=== PATIENT | male | born 1960 | race Caucasian/White ===

== ENCOUNTER 2017-03-21 23:02 | Inpatient (IN) | payer OTHER ==
[~2017-03-21] VITALS: Ht 170.2 cm; Wt 91.9 kg
[~2017-03-21 23:02] MED LIST: BENZ1TAB7 PO; CYAN500T46 PO; HAL2 PO; LISI30TA47 PO; METF1000 PO; MULT1TAB63 PO; SERT-165 PO
[2017-03-21] MEDS ORDERED: CEFTRIAXONE 1 GM/50 ML (PMX) 50 ML IVPB STA (23:56)
[2017-03-21] MEDS ORDERED: OCTREOTIDE 50 MCG in SOD CHLORIDE 0.9% 25 ML IVPB STA (23:56)
[2017-03-21] MEDS ORDERED: morphine 4 MG/ML VIAL IV STA (23:56)
[2017-03-21] MEDS ORDERED: PANTOPRAZOLE IV 80 MG in SOD CHLORIDE 0.9% 100 ML IVPB STA (23:56)
[2017-03-21] MEDS ORDERED: SOD CHLORIDE 0.9% 1,000 ML IV STA (23:56)
[2017-03-22] VITALS (7 sets, daily range): BP systolic 197–212; BP diastolic 108–131; PULSE 92–108; RESP 18–20; TEMP 98.6; Ht 170.2 cm; Wt 91.9 kg
[2017-03-22 00:27] LABS: AADO2 Arterial 42.8 mmHg (7.0-24.0); Arterial Base Excess -10.6 mmol/L (-3.0-3); Arterial COHb 0.9 % (0.0-3.0); Arterial Fraction of Oxyhgb 93.8 % (93.0-99.0); Arterial HCO3 11.8 mmol/L (22.0-26.0); Arterial MetHb 0.5 % (0.0-1.5); MODE ROOM AIR
[2017-03-22 00:29] LABS: ADD SCAN DIFF NO
[2017-03-22 00:32] LABS: BASOPHIL # 0.1 10^3/ul (0.0-0.1); BASOPHILS % 0.8 % (0.0-2.0); EOSINOPHILS % 0.6 % (0.0-7.0); HEMATOCRIT 43.7 % (42.0-52.0); HEMOGLOBIN 15.7 g/dl (14.0-18.0); LYMPHOCYTES # 2.3 10^3/ul (0.8-2.9); LYMPHOCYTES % 36.1 % (15.0-51.0); MEAN CORPUSCULAR HEMOGLOBIN 32.4 pg (29.0-33.0); MEAN CORPUSCULAR HGB CONC 35.9 g/dl (32.0-37.0); MEAN CORPUSCULAR VOLUME 90.3 fl (82.0-101.0); MEAN PLATELET VOLUME 11.8 fl (7.4-10.4); MONOCYTE # 0.5 10^3/ul (0.3-0.9); MONOCYTES % 7.2 % (0.0-11.0); NEUTROPHIL # 3.4 10^3/ul (1.6-7.5); NEUTROPHILS % 55.1 % (39.0-77.0); PLATELET COUNT 204 10^3/UL (140-415); RED BLOOD COUNT 4.84 10^6/ul (4.70-6.10); RED CELL DISTRIBUTION WIDTH 13.3 % (11.5-14.5); WHITE BLOOD COUNT 6.2 10^3/ul (4.8-10.8)
[2017-03-22] MEDS ORDERED: ONDANSETRON 4 MG INJ ONE (00:43)
[2017-03-22] MEDS ORDERED: LORAZEPAM 2 MG INJ ONE (00:43)
[2017-03-22 00:47] LABS: INR 1.03; PROTIME 13.5 Sec (12.2-14.2); PT RATIO 1.1
[2017-03-22 00:48] LABS: PARTIAL THROMBOPLASTIN TIME 24.1 Sec (25.0-35.0)
[2017-03-22 00:54] LABS: ALBUMIN 4.2 g/dl (3.3-4.9); ALBUMIN/GLOBULIN RATIO 1.2; BILIRUBIN,INDIRECT 0.7 mg/dl (0-1.1); BILIRUBIN,TOTAL 0.7 mg/dl (0.2-1.3); CALCIUM 8.3 mg/dl (8.4-10.2); CREATININE 0.63 mg/dl (0.61-1.24); POTASSIUM 3.3 mmol/L (3.5-5.1); TOTAL PROTEIN 7.7 g/dl (6.1-8.1)
[2017-03-22] MEDS ORDERED: HAL5 PO (00:54)
[2017-03-22] MEDS ORDERED: SERT50TA6 PO (00:54)
[2017-03-22] MEDS ORDERED: METF-480 PO (00:54)
--- NOTE | 2017-03-22 00:59 | RADRPT ---
PROCEDURE: XR Chest. CLINICAL INDICATION: Chest pain. Possible upper gastrointestinal bleeding. TECHNIQUE: Portable AP view of the chest was obtained. COMPARISON: None. FINDINGS: The cardiomediastinal silhouette is within normal limits. The lungs are clear. There is no evidenc e for pleural effusion, pneumothorax or pulmonary vascular congestion. The osseous structures are i ntact with no evidence for acute abnormality. No free air seen below the diaphragm. RPTAT:HJJR IMPRESSION: No evidence for acute intrathoracic pathology. Physician Louis Date Time Electronically viewed and signed by Carlos Burch Physician on 03/22/2017 00:59 /
[2017-03-22] MEDS ORDERED: PROP10TA6 PO (01:00)
[2017-03-22] MEDS ORDERED: ASPI-664 PO (01:00)
[2017-03-22] MEDS ORDERED: BUPR150T18 PO (01:00)
[2017-03-22] MEDS ORDERED: LOSA50TA2 PO (01:00)
[2017-03-22] MEDS ORDERED: HYD25 PO (01:00)
[2017-03-22] MEDS ORDERED: GLIP-95 PO (01:00)
[2017-03-22] MEDS ORDERED: CHOL100062 PO (01:01)
[2017-03-22] MEDS ORDERED: NAPR-685 PO (01:01)
[2017-03-22 01:05] LABS: TROPONIN-I 0.013 ng/ml (0.00-0.12)
[2017-03-22] MEDS ORDERED: LORAZEPAM 2 MG INJ IV ONE ×2 (01:10→03:05)
[2017-03-22] MEDS ORDERED: ONDANSETRON 4 MG INJ IV ONE (01:10)
--- NOTE | 2017-03-22 01:32 | RADRPT ---
PROCEDURE: CT ABDOMEN/PELVIS WITHOUT CONTRAST CLINICAL INDICATION: 57-year-old male with abdominal pain. TECHNIQUE: The study was performed utilizing a GE [employer] VCT 64-slice CT scanner. Direct axia l sections were obtained through the abdomen and pelvis without the use of intravenous contrast mate rial. Sagittal and coronal reformations were obtained. One or more of the following dose reduction t echniques were utilized: automated exposure control, adjustment of the mA and/or kV according to pat ient's size or use of iterative reconstruction technique. The images were reviewed on a PACS workst atBiolase. CTD/vol = 18.1 mGy; Total Exam DLP = 1162.6 mGy-cm. COMPARISON: None. FINDINGS: There is trace bibasilar subsegmental atelectasis. There is no evidence for significant pleural eff usion. The liver has a normal size and contour. There is diffuse decreased density throughout the liver consistent with fatty infiltration without focal areas of abnormal density. No intrahepatic no r extrahepatic biliary ductal dilatation is seen. Surgical clips are present within the gallbladder fossa from prior cholecystectomy The pancreas is without areas of abnormal attenuation. The spleen is identified and has a normal size without abnormal density. The adrenal glands are unremarkable. T here is a nonobstructing right lower pole renal leoncio calculus measuring 5 x 3 mm. The left kidney is without abnormal density, calculi or obstruction. The urinary bladder contains urine. There are m ildly dilated fluid-filled loops of small bowel without definite transition point suggestive of an e nteritis. The appendix is visualized and is without abnormal thickening or surrounding inflammatory reaction. The prostate is mildly prominent with small central calcifications. There is no significant pelvic free fluid. The aortoiliac vessels are without aneurysmal dilatation. Degenera tive changes are seen within the lower lumbar spine. IMPRESSION: 1. Diffuse fatty infiltration of the liver. 2. Status post cholecystectomy. 3. Nonobstructing right lower pole renal calculus. 4. Dilated fluid-filled loops of small bowel suggestive of an enteritis. 5. No CT evidence for appendicitis. 6. Degenerative changes lower lumbar spine. .Armen Molina MD, MD Date Time Electronically viewed and signed by .Armen Molina MD, on 03/22/2017 01:32 .[place]/
[2017-03-22] MEDS ORDERED: LACTATED RINGER'S 1,000 ML IV ONE (02:30)
[2017-03-22 03:11] LABS: ADD UMIC YES; URINE BILIRUBIN (Dip) NEGATIVE (NEGATIVE); URINE BLOOD (Dip) TRACE (NEGATIVE); URINE COLOR LT. YELLOW (YELLOW); URINE GLUCOSE (Dip) >=1000 % (NEGATIVE); URINE KETONES (Dip) TRACE (NEGATIVE); URINE LEUKOCYTE ESTERASE (Dip) NEGATIVE (NEGATIVE); URINE NITRITE (Dip) NEGATIVE (NEGATIVE); URINE TOTAL PROTEIN (Dip) 1+ (NEGATIVE); URINE UROBILINOGEN (Dip) 0.2 E.U./dL (0.1-1.0)
[2017-03-22 03:25] LABS: SQUAMOUS EPITHELIAL CELL,UR OCCASIONAL; URINE RBCS 0-2 /HPF (0)
[2017-03-22 03:26] LABS: BACTERIA,URINE OCCASIONAL
[2017-03-22] MEDS ORDERED: ACETAMINOPHEN 325 MG TAB PO PRN (03:30)
[2017-03-22] MEDS ORDERED: ONDANSETRON 4 MG INJ IV PRN ×2 (03:30→05:00)
[2017-03-22 04:24] LABS: BARBITURATES NEGATIVE (NEGATIVE); BENZODIAZEPINES NEGATIVE (NEGATIVE); CANNABINOIDS NEGATIVE (NEGATIVE); COCAINE NEGATIVE (NEGATIVE); OPIATES POSITIVE (NEGATIVE)
[2017-03-22] MEDS ORDERED: LORAZEPAM 2 MG INJ IV PRN ×2 (05:00)
[2017-03-22] MEDS ORDERED: METOPROLOL 25 MG TAB PO SCH ×2 (05:15→09:00)
[2017-03-22] MEDS ORDERED: PANTOPRAZOLE 40 MG INJ IV SCH (06:00)
--- NOTE | 2017-03-22 06:24 | ERA ---
ER Documentation Chief Complaint Date/Time DATE: 03/22/17 TIME: 06:17 Chief Complaint abdominal pain, states been drinking etoh HPI 57-year-old male with a history of alcoholism presenting to the ER with upper abdominal pain. He states the pain started 3 days ago. The pain is constant, radiating all over his abdomen and back, throbbing, 10 out of 10, with associated nausea and vomiting. He states he has noticed some dark emesis with dark stools. He denies any hematochezia or hematemesis. He denies any fevers or chills. No chest pain or shortness of breath. He has been drinking today and his last drink was this morning. He also endorses a history of schizophrenia and diabetes, however he is off medications. He recently went to [facility] and returned today. ROS All systems reviewed and are negative except as per history of present illness. Medications Home Meds Reported Medications Cholecalciferol* (Vitamin D3*) 1,000 Unit Tablet, 1000 UNIT PO BID, TAB 03/22/17 Naproxen* (Naproxen*) 375 Mg Tablet, 375 MG PO BID, TAB 03/22/17 Hydrochlorothiazide* (Hydrochlorothiazide*) 25 Mg Tab, 25 MG PO DAILY, #30 TAB 03/22/17 Aspirin* (Aspirin* EC) 81 Mg Tablet.dr, 81 MG PO DAILY, TAB 03/22/17 Glipizide* (Glipizide*) 10 Mg Tablet, 10 MG PO BID, TAB 03/22/17 Losartan Potassium* (Cozaar*) 50 Mg Tablet, 50 MG PO DAILY, #30 TAB 03/22/17 Propranolol Hcl* (Propranolol Hcl*) 10 Mg Tablet, 10 MG PO BID, TAB 03/22/17 Bupropion Hcl* (Bupropion Hcl SR*) 150 Mg Tablet.er, 150 MG PO BID, TAB.SA 03/22/17 Sertraline Hcl* (Sertraline Hcl*) 50 Mg Tablet, 50 MG PO DAILY, #30 TAB 03/22/17 Metformin* (Glucophage*) 850 Mg Tablet, 850 MG PO WITH MEALS, #90 TAB 03/22/17 Haloperidol* (Haldol*) 5 Mg Tab, 5 MG PO BID for SLEEP, TAB 03/22/17 Discontinued Reported Medications Multivitamins,Therapeutic (Therems) 1 Tab Tablet, 1 TAB PO 06/23/15 Cyanocobalamin* (Vitamin B12*) 500 Mcg Tab, 500 MCG PO DAILY, TAB 06/23/15 Sertraline Hcl* (Sertraline Hcl*) 100 Mg Tablet, 100 MG PO DAILY, TAB 06/23/15 Haloperidol* (Haldol*) 2 Mg Tab, 2 MG PO BID, TAB 06/23/15 Benztropine Mesylate* (Benztropine Mesylate*) 1 Mg Tablet, 1 MG PO TID, TAB 06/23/15 Lisinopril* (Lisinopril*) 30 Mg Tablet, 30 MG PO DAILY, TAB 06/23/15 Metformin Hcl* (Metformin Hcl*) 1,000 Mg Tablet, 1000 MG PO WITH BREAKFAST, TAB 06/23/15 Allergies Allergies: Coded Allergies: No Known Drug Allergies (Unverified Allergy, Unknown, 03/22/17) PMhx/Soc History of Surgery: Yes (appendectomy) Anesthesia Reaction: No Hx Neurological Disorder: No Hx Respiratory Disorders: No Hx Cardiac Disorders: Yes (HTN) Hx Psychiatric Problems: Yes (schizophrenia) Hx Miscellaneous Medical Probl: No Hx Alcohol Use: Yes Hx Substance Use: Yes Hx Tobacco Use: Yes Smoking Status: Current some day smoker FmHx Family History: No diabetes Physical Exam Vitals Vital Signs Date Time Temp Pulse Resp B/P Pulse Ox O2 Delivery O2 Flow Rate FiO2 03/22/17 02:13 98.6 119 17 178/113 95 Nasal Cannula 3.0 03/22/17 02:05 Nasal Cannula 3 03/21/17 23:06 98.7 117 20 138/98 96 Physical Exam Const: Appears intoxicated, in distress, agitated Head: Atraumatic Eyes: Normal Conjunctiva, no scleral icterus ENT: Dry mucous membranes. Neck: Full range of motion..~ No meningismus. Resp: Wheezing in the bilateral lower lobes, no rales or rhonchi Cardio: Tachycardic with regular rhythm, no murmurs Abd: Soft, diffusely tender to palpation without rebound or guarding, no masses, no hepatomegaly normal bowel sounds Skin: No petechiae or rashes Back: No midline or flank tenderness Ext: No cyanosis, or edema Neur: Awake and alert Psych: Agitated, tremulous Result Diagram: 03/22/17 0020 03/22/17 0020 Results 24 hrs Laboratory Tests Test 03/21/17 23:53 03/22/17 00:20 03/22/17 02:50 Blood Gas Specimen Source Blood arterial Arterial Blood Date Drawn 03/22/2017 12:15:31 AM Arterial Blood pH (Temp corrected) 7.420 Arterial Blood pCO2 (Temp correct) 18.6mmhg Arterial Blood pO2 (Temp corrected) 84.7mmHG Arterial Blood HCO3 11.8mmol/L Arterial Blood Base Excess -10.6mmol/L Arterial Blood Oxygen Saturation 95.1mmHG Juan Test N/A Arterial Blood Gas Puncture Site A-Line Arterial Blood Carboxyhemoglobin 0.9% Arterial Blood Methemoglobin 0.5% Blood Gas A-a O2 Differential 42.8mmHg Oxyhemoglobin Percent 93.8% Total Hemoglobin 11.0g/dl Blood Gas Temperature 37.0C Blood Gas Modality ROOM AIR FiO2 21.0% Blood Gas Notified Whom K B Blood Gas Notified Time 03/22/2017 12:27:02 AM White Blood Count 6.210^3/ul Red Blood Count 4.8410^6/ul Hemoglobin 15.7g/dl Hematocrit 43.7% Mean Corpuscular Volume 90.3fl Mean Corpuscular Hemoglobin 32.4pg Mean Corpuscular Hemoglobin Concent 35.9g/dl Red Cell Distribution Width 13.3% Platelet Count 26762^3/UL Mean Platelet Volume 11.8fl Neutrophils % 55.1% Lymphocytes % 36.1% Monocytes % 7.2% Eosinophils % 0.6% Basophils % 0.8% Nucleated Red Blood Cells % 0.0/100WBC Neutrophils # 3.410^3/ul Lymphocytes # 2.310^3/ul Monocytes # 0.510^3/ul Eosinophils # 0.010^3/ul Basophils # 0.110^3/ul Nucleated Red Blood Cells # 0.010^3/ul Prothrombin Time 13.5Sec Prothrombin Time Ratio 1.1 INR International Normalized Ratio 1.03 Activated Partial Thromboplast Time 24.1Sec Sodium Level 136mmol/L Potassium Level 3.3mmol/L Chloride Level 100mmol/L Carbon Dioxide Level 21mmol/L Anion Gap 18 Blood Urea Nitrogen 8mg/dl Creatinine 0.63mg/dl Glucose Level 321mg/dl Calcium Level 8.3mg/dl Total Bilirubin 0.7mg/dl Direct Bilirubin 0.00mg/dl Indirect Bilirubin 0.7mg/dl Aspartate Amino Transf (AST/SGOT) 225IU/L Alanine Aminotransferase (ALT/SGPT) 97IU/L Alkaline Phosphatase 182IU/L Troponin I 0.013ng/ml Total Protein 7.7g/dl Albumin 4.2g/dl Globulin 3.50g/dl Albumin/Globulin Ratio 1.20 Lipase 305U/L Ethyl Alcohol Level 219.0mg/dl Urine Color LT. YELLOW Urine Clarity CLEAR Urine pH 5.5 Urine Specific [place] >=1.030 Urine Ketones TRACE Urine Nitrite NEGATIVE Urine Bilirubin NEGATIVE Urine Urobilinogen 0.2 E.U./dL Urine Leukocyte Esterase NEGATIVE Urine Microscopic RBC 0-2/HPF Urine Microscopic WBC 0-2/HPF Urine Squamous Epithelial Cells OCCASIONAL Urine Bacteria OCCASIONAL Urine Hemoglobin TRACE Urine Glucose >=1000% Urine Total Protein 1+ Urine Opiates Screen POSITIVE Urine Barbiturates NEGATIVE Urine Amphetamines Screen NEGATIVE Urine Benzodiazepines Screen NEGATIVE Urine Cocaine Screen NEGATIVE Urine Cannabinoids NEGATIVE Current Medications Medications (Trade) Dose Ordered Sig/Agnes Route PRN Reason Start Time Stop Time Status Last Admin Dose Admin Sodium Chloride 1,000 ml @ 1,000 mls/hr Q1H STAT IV 03/21/17 23:56 03/22/17 00:55 DC 03/22/17 01:10 Pantoprazole 80 mg/Sodium Chloride 100 ml @ 400 mls/hr ONCE STAT IVPB 03/21/17 23:56 03/22/17 00:10 DC 03/22/17 01:10 Octreotide Acetate 50 mcg/ Sodium Chloride 26 ml @ 100 mls/hr Q16M STAT IVPB 03/21/17 23:56 03/22/17 00:11 DC 03/22/17 01:09 Ceftriaxone Sodium (Rocephin) 50 ml @ 100 mls/hr ONCE STAT IVPB 03/21/17 23:56 03/22/17 00:25 DC 03/22/17 01:10 Morphine Sulfate (morphine) 4 mg ONCE STAT IV 03/21/17 23:56 03/21/17 23:59 DC 03/22/17 00:49 Ondansetron HCl (Zofran Inj) 4 mg STK-MED ONCE .ROUTE 03/22/17 00:43 03/22/17 00:44 DC Lorazepam (Ativan) 2 mg STK-MED ONCE .ROUTE 03/22/17 00:43 03/22/17 00:44 DC Lorazepam (Ativan) 1 mg ONCE ONCE IV 03/22/17 01:10 03/22/17 01:11 DC 03/22/17 00:45 Ondansetron HCl 4 mg 4 mg ONCE ONCE IV 03/22/17 01:10 03/22/17 01:11 DC 03/22/17 00:47 Lactated Ringer's (Lr) 1,000 ml @ 1,000 mls/hr Q1H ONCE IV 03/22/17 02:30 03/22/17 03:29 DC 03/22/17 02:08 Lorazepam (Ativan) 1 mg ONCE ONCE IV 03/22/17 03:05 03/22/17 03:06 DC 03/22/17 03:08 Procedures/MDM EMERGENT LABS AND DIAGNOSTIC STUDIES: Lab Results above were reviewed and interpreted by me. CBC was unremarkable CMP shows mild hypokalemia, hyperglycemia, elevated AST and ALT, elevated lipase 12-lead EKG was interpreted by Junie Craig MD: Sinus tachycardia at 111 beats per minute Normal axis Normal intervals No acute ST or T wave changes suggestive of acute ischemia or STEMI. Radiology Results as interpreted by Radiology below were reviewed by Nicole Craig MD: Chest x-ray: No acute abnormalities CT abdomen and pelvis: IMPRESSION: 1. Diffuse fatty infiltration of the liver. 2. Status post cholecystectomy. 3. Nonobstructing right lower pole renal calculus. 4. Dilated fluid-filled loops of small bowel suggestive of an enteritis. 5. No CT evidence for appendicitis. 6. Degenerative changes lower lumbar spine. .Armen Molina MD, Date Time Electronically viewed and signed by .Armen Molina MD, on 03/22/2017 01:32 Initial Nursing notes reviewed. Previous Medical Records requested via the Electronic Health Record. EMERGENCY DEPARTMENT COURSE / MEDICAL DECISION MAKING: Patient is presenting with signs of alcohol withdrawal without delirium in addition to abdominal pain with coffee-ground emesis and melena. His vitals are notable for hypertension, tachycardia. He is afebrile. I have a low suspicion for SBP. CT of the abdomen and pelvis was done and showed dilated loops of bowel without evidence of clear obstruction or bowel perforation. Labs are consistent with alcoholic hepatitis and pancreatitis. He also has uncontrolled diabetes without evidence of DKA. Ativan was given for his agitation. Morphine was given for pain. His symptoms improved after these medications. 2 L of IV fluids were given for hydration. Patient will be admitted for treatment of his pancreatitis, IV hydration, pain control, and control of his alcohol withdrawal symptoms. Critical Care Time: 35 minutes Treatments/Evaluations: Close monitoring and treatment of unstable vital signs, cardiorespiratory, and neurologic status, while maintaining tight balance of fluid, respiratory, and cardiac interventions. This time includes discussing the case with the patient and the patients family. This time does not include all procedures stated elsewhere in this record. This time also includes reviewing old records, labs and radiological studies. This time includes examining and re-examining the patient. Additionally, this time also includes arranging care with admitting and consulting physicians. Accepting Care Team: Current data and ongoing care discussed. Time: Time of admission Primary Provider: Amish Patino Diagnosis: Primary Impression: Alcoholic hepatitis Qualified Code: K70.10 - Alcoholic hepatitis without ascites Additional Impressions: Pancreatitis Qualified Code: K85.20 - Alcohol-induced acute pancreatitis, unspecified complication status Alcohol withdrawal Qualified Code: F10.230 - Alcohol withdrawal, uncomplicated Uncontrolled diabetes mellitus Condition: Serious KEYLA CRAIG MD March 22, 2017 06:24
--- NOTE | 2017-03-22 08:17 | HP ---
DATE OF ADMISSION: 03/22/2017 TIME SEEN: 5 a.m. CHIEF COMPLAINT: 1. Abdominal pain. 2. Vomiting. HISTORY OF PRESENT ILLNESS: The patient is a 57-year-old male with a history of hypertension, schiz ophrenia, and alcohol abuse who was brought to the ER by family for abdominal pain, vomiting, and al cohol intoxication. The patient just came back from [place] last night and has been drinking daily h eavily. He describes his abdominal pain as sharp and it is diffuse. His vomiting described as dark colored emesis and also reported dark stools. He said he has had similar dark stool in the past. The patient has not been compliant with his psychiatric medications. When patient presented to the ER, blood pressure was 138/98, heart rate 117, respiratory rate 20, te mperature 98.7, oxygen saturation 96% on room air. Laboratory values show a potassium of 3.3, gluco se 321, AST 225, ALT 97, alkaline phosphatase 182, lipase 305. Otherwise, CBC and CMP are within no rmal limits. Chest x-ray shows no evidence for acute intrathoracic disease. CT abdomen and pelvis without contrast shows diffuse fatty liver, nonobstructing right lower pole renal calculus, dilated fluid-filled loops of small bowel suggestive of enteritis. REVIEW OF SYSTEMS: A 12-point review of systems was performed, negative except as mentioned in HPI. PAST MEDICAL HISTORY: As per HPI. PAST SURGICAL HISTORY: Appendectomy. SOCIAL HISTORY: He drinks alcohol heavily. ALLERGIES: NO KNOWN DRUG ALLERGIES. HOME MEDICATIONS: 1. Cozaar. 2. Propranolol. 3. Aspirin. 4. Bupropion. 5. Haldol. 6. Naproxen. 7. hydrochlorothiazide. 8. Glipizide. 9. Metformin. 10. Vitamin D2. PHYSICAL EXAMINATION: VITAL SIGNS: Blood pressure 197/111, heart rate 114, respiratory rate 20, temperature 97.9, oxygen saturation 95%. GENERAL: The patient is somehow agitated. HEENT: No obvious head deformity. Pupils are reactive to light. CARDIOVASCULAR: Tachycardic with regular rhythm. LUNGS: Clear. ABDOMEN: Soft. There is tenderness diffusely. No guarding. No rigidity. There are positive celestino l sounds. EXTREMITIES: No edema. NEUROLOGIC: No focal deficits. LABORATORY DATA: Pertinent positives as mentioned in HPI. IMAGING: Chest x-ray and CT abdomen and pelvis without contrast results as mentioned in the HPI. IMPRESSION: 1. Alcohol intoxication, monitor for withdrawal. 2. Probable upper gastrointestinal bleed. 3. Abdominal pain, likely secondary to gastritis and possibly pancreatitis. 4. Pancreatitis. 5. Abnormal liver enzymes, most likely secondary to alcoholic liver disease. 6. Hypokalemia. 7. Diabetes with hyperglycemia. 8. Hypertensive urgency. 9. History of schizophrenia. PLAN: He will be placed on Protonix, banana bag, Librium, and as needed Ativan for withdrawal. We will monitor his H and H closely. We will place a GI consultation. He will be on insulin for diabe gonzalez and will adjust as needed. Will also add antihypertensive for better blood pressure control. W ill correct electrolytes as needed. Further workup and management per clinical course. Dictated By: GURPREET ADAMS/RICH Conf#: [id number] DID#: [id number]
[2017-03-22] MEDS: CHLORDIAZEPOXIDE 25 MG CAP PO SCH ×2 (08:59→12:59)
[2017-03-22] MEDS ORDERED: MULTIVITAMINS 10 ML, THIAMINE 100 MG, FOLIC ACID 1 MG in SOD CHLORIDE 0.9% 1,000 ML IVPB SCH (09:00)
[2017-03-22] MEDS ORDERED: hydrALAzine 20 MG INJ IV PRN (09:00)
[2017-03-22] MEDS ORDERED: morphine 4 MG/ML VIAL IM PRN (09:00)
[2017-03-22] MEDS ORDERED: morphine 4 MG/ML VIAL IV PRN (09:00)
[2017-03-22 11:05] LABS: ADD SCAN DIFF NO
[2017-03-22 11:17] LABS: BASOPHILS % 0.4 % (0.0-2.0); EOSINOPHILS % 0.4 % (0.0-7.0); HEMATOCRIT 43.7 % (42.0-52.0); HEMOGLOBIN 15.2 g/dl (14.0-18.0); LYMPHOCYTES % 10.6 % (15.0-51.0); MEAN CORPUSCULAR HEMOGLOBIN 31.9 pg (29.0-33.0); MEAN CORPUSCULAR HGB CONC 34.8 g/dl (32.0-37.0); MEAN CORPUSCULAR VOLUME 91.6 fl (82.0-101.0); MEAN PLATELET VOLUME 11.6 fl (7.4-10.4); MONOCYTE # 0.4 10^3/ul (0.3-0.9); MONOCYTES % 4.7 % (0.0-11.0); NEUTROPHIL # 7.5 10^3/ul (1.6-7.5); NEUTROPHILS % 83.7 % (39.0-77.0); PLATELET COUNT 180 10^3/UL (140-415); RED BLOOD COUNT 4.77 10^6/ul (4.70-6.10); RED CELL DISTRIBUTION WIDTH 13.4 % (11.5-14.5)
[2017-03-22] MEDS ORDERED: LABETALOL HCL 20MG INJ IV PRN (11:30)
[2017-03-22 11:53] LABS: ALBUMIN 3.7 g/dl (3.3-4.9); POTASSIUM 3.6 mmol/L (3.5-5.1)
[2017-03-22 11:55] LABS: BILIRUBIN,INDIRECT 1.3 mg/dl (0-1.1); BILIRUBIN,TOTAL 1.3 mg/dl (0.2-1.3); CREATININE 0.58 mg/dl (0.61-1.24)
[2017-03-22 11:56] LABS: ALBUMIN/GLOBULIN RATIO 1.12; CALCIUM 7.8 mg/dl (8.4-10.2); MAGNESIUM 1.5 mg/dl (1.7-2.5); PHOSPHORUS 2.5 mg/dl (2.5-4.9)
--- NOTE | 2017-03-22 14:45 | PN ---
Date/Time of Note Date/Time of Note DATE: 03/22/17 TIME: 14:41 Assessment/Plan VTE Prophylaxis VTE Prophylaxis Intervention: contraindicated Lines/Catheters Urinary Cath still in place: No Assessment/Plan Chief Complaint/Hosp Course 57-yr M w admitted w abd pain alcoholism & potential GI bleed. O: Bp elevated. PE No pallor adenopathy Reg possibly tachycardic Clear Bs+ nt nd, no R/R/G No edema A/P 1. GI bleed, stable npo/ PPI, consider EGD. 2. Alcoholism, counseling/ thiamine; add scheduled IV Ativan 3. Nonadherence 4. Depression 5. Diabetes type 2 6. Htn/htn urgency 7. Colitis/ Enteritis/abn lipase 8. Schizophrenia 10.Rt nephrolithiasis Problems: Exam/Review of Systems Vital Signs Vitals Vital Signs Date Time Temp Pulse Resp B/P Pulse Ox O2 Delivery O2 Flow Rate FiO2 03/22/17 12:15 92 03/22/17 11:39 98.6 18 197/108 97 03/22/17 05:16 Nasal Cannula 2.0 Intake and Output 03/21/17 03/21/17 03/22/17 15:00 23:00 07:00 Intake Total 2176 ml Balance 2176 ml Results Result Diagram: 03/22/17 1028 03/22/17 1028 Results 24 hrs Laboratory Tests Test 03/21/17 23:53 03/22/17 00:20 03/22/17 02:50 03/22/17 10:28 Blood Gas Specimen Source Blood arterial Arterial Blood Date Drawn 03/22/2017 12:15:31 AM Arterial Blood pH (Temp corrected) 7.420 Arterial Blood pCO2 (Temp correct) 18.6 L Arterial Blood pO2 (Temp corrected) 84.7 Arterial Blood HCO3 11.8 L Arterial Blood Base Excess -10.6 L Arterial Blood Oxygen Saturation 95.1 Juan Test N/A Arterial Blood Gas Puncture Site A-Line Arterial Blood Carboxyhemoglobin 0.9 Arterial Blood Methemoglobin 0.5 Blood Gas A-a O2 Differential 42.8 H Oxyhemoglobin Percent 93.8 Total Hemoglobin 11.0 L Blood Gas Temperature 37.0 Blood Gas Modality ROOM AIR FiO2 21.0 Blood Gas Notified Whom K B Blood Gas Notified Time 03/22/2017 12:27:02 AM White Blood Count 6.2 9.0 # Red Blood Count 4.84 4.77 Hemoglobin 15.7 15.2 Hematocrit 43.7 43.7 Mean Corpuscular Volume 90.3 91.6 Mean Corpuscular Hemoglobin 32.4 31.9 Mean Corpuscular Hemoglobin Concent 35.9 34.8 Red Cell Distribution Width 13.3 13.4 Platelet Count 204 180 Mean Platelet Volume 11.8 H 11.6 H Neutrophils % 55.1 83.7 H Lymphocytes % 36.1 10.6 L Monocytes % 7.2 4.7 Eosinophils % 0.6 0.4 Basophils % 0.8 0.4 Nucleated Red Blood Cells % 0.0 0.0 Neutrophils # 3.4 7.5 Lymphocytes # 2.3 1.0 Monocytes # 0.5 0.4 Eosinophils # 0.0 0.0 Basophils # 0.1 0.0 Nucleated Red Blood Cells # 0.0 0.0 Prothrombin Time 13.5 Prothrombin Time Ratio 1.1 INR International Normalized Ratio 1.03 Activated Partial Thromboplast Time 24.1 L Sodium Level 136 137 Potassium Level 3.3 L 3.6 Chloride Level 100 101 Carbon Dioxide Level 21 25 Anion Gap 18 H 15 Blood Urea Nitrogen 8 9 Creatinine 0.63 0.58 L Glucose Level 321 H 254 H Calcium Level 8.3 L 7.8 L Total Bilirubin 0.7 1.3 Direct Bilirubin 0.00 0.00 Indirect Bilirubin 0.7 1.3 H Aspartate Amino Transf (AST/SGOT) 225 H 165 H Alanine Aminotransferase (ALT/SGPT) 97 H 115 H Alkaline Phosphatase 182 H 191 H Troponin I 0.013 Total Protein 7.7 7.0 Albumin 4.2 3.7 Globulin 3.50 H 3.30 H Albumin/Globulin Ratio 1.20 1.12 Lipase 305 H Ethyl Alcohol Level 219.0 Urine Color LT. YELLOW Urine Clarity CLEAR Urine pH 5.5 Urine Specific [place] >=1.030 H Urine Ketones TRACE Urine Nitrite NEGATIVE Urine Bilirubin NEGATIVE Urine Urobilinogen 0.2 E.U./dL Urine Leukocyte Esterase NEGATIVE Urine Microscopic RBC 0-2 Urine Microscopic WBC 0-2 Urine Squamous Epithelial Cells OCCASIONAL Urine Bacteria OCCASIONAL Urine Hemoglobin TRACE Urine Glucose >=1000 Urine Total Protein 1+ H Urine Opiates Screen POSITIVE Urine Barbiturates NEGATIVE Urine Amphetamines Screen NEGATIVE Urine Benzodiazepines Screen NEGATIVE Urine Cocaine Screen NEGATIVE Urine Cannabinoids NEGATIVE Phosphorus Level 2.5 Magnesium Level 1.5 L Test 5/11/17 11:00 03/22/17 11:32 Stool Occult Blood POSITIVE Bedside Glucose 241 H Medications Medications Current Medications Pantoprazole (Protonix Iv) 40 mg DAILY@06 IV Last administered on 03/22/17 05: 14; Admin Dose 40 MG; Start 03/22/17 at 06:00 Lorazepam (Ativan) 2 mg Q1H PRN IV withdraws; Start 03/22/17 at 05:00 Lorazepam (Ativan) 1 mg Q1H PRN IV Anxiety Last administered on 03/22/17 07:37 ; Admin Dose 1 MG; Start 03/22/17 at 05:00 Chlordiazepoxide 50 mg 50 mg TID PO Last administered on 03/22/17 12:59; Admin Dose 50 MG; Start 03/22/17 at 09:00 Multivitamins/ Thiamine HCl/ Folic Acid/Sodium Chloride (Mvi Adult/ Vitamin B1/ Folic Acid/NS) 1,011.2 ml @ 100 mls/ hr DAILY@09 IVPB Last administered on 07:43; Admin Dose 100 MLS/HR; Start 03/22/17 at 09:00; Stop 03/24/17 at 21:00 Ondansetron HCl (Zofran Inj) 4 mg Q6H PRN IV NAUSEA AND/OR VOMITING; Start 09/28 at 05:00 Metoprolol Tartrate (Lopressor) 25 mg BID PO Last administered on 03/22/17 05: 15; Admin Dose 25 MG; Start 03/22/17 at 05:15 Hydralazine HCl (Apresoline) 10 mg Q4H PRN IV For SBP >170 Last administered on 03/22/17 09:02; Admin Dose 10 MG; Start 03/22/17 at 09:00 Morphine Sulfate (morphine) 4 mg Q3H PRN IV PAIN LEVEL 7-10 Last administered on 03/22/17 09:15; Admin Dose 4 MG; Start 03/22/17 at 09:00 Labetalol HCl (Labetalol) 20 mg Q4H PRN IV elevated SBP >170; Start 03/22/17 at 11:30 ISAI CONRAD MD March 22, 2017 14:45
[2017-03-22] MEDS ORDERED: CLONIDINE 0.2 MG/24 HR PATCH TRANSDERM SCH (15:00)
[2017-03-22] MEDS ORDERED: LORAZEPAM 1 MG TAB PO SCH (15:00)
[2017-03-22] MEDS ORDERED: SOD CHLORIDE 0.9% 1,000 ML IV SCH (15:00)
[2017-03-22] MEDS ORDERED: MAGNESIUM SULFATE 3 GM in SOD CHLORIDE 0.9% 100 ML IVPB ONE (15:00)
--- NOTE | 2017-03-22 15:36 | DS ---
DATE OF ADMISSION: 03/22/2017 DATE OF DISCHARGE: 03/22/2017 DATE OF AGAINST MEDICAL ADVICE: 03/22/2017. DIAGNOSIS ON ADMISSION: Gastrointestinal bleed. DIAGNOSES ON AGAINST MEDICAL ADVICE: 1. Gastrointestinal bleed. 2. Alcoholism. 3. Nonadherence. 4. Depression. 5. Diabetes type 2. 6. Hypertension/hypertensive urgency. 7. Colitis versus enteritis with abnormal lipase. 8. Schizophrenia. 9. Right nephrolithiasis. HOSPITAL COURSE: A 57-year-old gentleman admitted with gastrointestinal bleed recently returned [facility] off his medications. He has chronic schizophrenia. He was seen in the ER and admitted for GI bleed, hypertensive urgency and hemoglobin of 15. Abnormal LFTs and unfortunately he signed out AMA. Please see the report for details. Dictated By: ISAI LARA/RICH Conf#: [id number] DID#: [id number]
[2017-03-23] MEDS ORDERED: INSULIN GLARGINE [LANtus] 3 ML PEN SC SCH (21:00)
== END 2017-03-22 14:30 | disposition left against medical advice (07) | DRG 377 ==
LOC: E/R 23:02 → MS4 03-22 03:05
PROVIDERS: ADMIT Internal Medicine; ATTEND Internal Medicine
DX: K92.2 Gastrointestinal hemorrhage, unspecified (principal); K85.20 Alcohol induced acute pancreatitis without necrosis or infection; N20.0 Calculus of kidney; E11.65 Type 2 diabetes mellitus with hyperglycemia; K85.90 Acute pancreatitis without necrosis or infection, unspecified; F10.20 Alcohol dependence, uncomplicated; E87.6 Hypokalemia; I16.0 Hypertensive urgency; F20.9 Schizophrenia, unspecified; K52.9 Noninfective gastroenteritis and colitis, unspecified; F32.9 Major depressive disorder, single episode, unspecified
CPT/HCPCS: 36415; 36600; 71010; 74176; 80053; 80306; 80307; 81001; 81003; 82270; 82803; 82962; 83690; 83735; 84100; 84484; 85025; 85610; 85730; 86850; 86900; 86901; 93005; 96361; 96365; 96368; 96375; 96376; C9113; J0360; J0696; J2060; J2270; J2405; J3411; J3475; J7030; J7120